=== PATIENT | male | born 1960 | race Caucasian/White ===

== ENCOUNTER 2018-07-29 05:51 | Emergency (ER) | payer BC ==
[2018-07-29] MEDS ORDERED: Tamsulosin 0.4 MG Cap.ER PO ONE (06:31)
[2018-07-29] MEDS ORDERED: Sodium Chloride 0.9% 10 ML Syringe FLUSH PRN (06:31)
[2018-07-29] MEDS ORDERED: Ondansetron 4 MG/2 ML SDV IVPUSH ONE (06:32)
[2018-07-29] MEDS ORDERED: Morphine 4 MG/ML Syringe IVPUSH ONE (06:32)
[2018-07-29] MEDS ORDERED: Morphine 2 MG/ML Syringe IVPUSH ONE (06:37)
--- NOTE | 2018-07-29 06:39 | EDM.PDOC ---
<Santiago Gamez - Last Filed: 07/29/18 06:33> ED HPI GENERAL MEDICAL PROBLEM - General Chief Complaint: Genitourinary Problem Stated Complaint: KIDNEY PAIN Time Seen by Provider: 07/29/18 06:20 Source of Information: Reports: Patient History Limitations: Reports: No Limitations - History of Present Illness INITIAL COMMENTS - FREE TEXT/NARRATIVE: Jaquan comes into [facility] ED with L CVA pain that is colicky in nature, radiating into L flank, since early this am. There has been some nausea, no vomiting, and some gross BRB in the urine. He has a PMH of bilateral nephrolithiasis diagnosed in [place], [place] last year. He has not passed a stone in the past. He has taken no meds. left flank Pain Score (Numeric/FACES): 4 - Related Data Allergies Allergy/AdvReac Type Severity Reaction Status Date / Time No Known Allergies Allergy Verified 04/16/13 10:31 Home Meds: Home Meds Acetaminophen/oxyCODONE [Percocet 325-7.5 MG] 1 tab PO Q4H PRN #6 tab 07/29/18 [ Rx] Lisinopril/Hydrochlorothiazide [Lisinopril-Hctz 20-25 mg Tab] 1 tab PO DAILY 02/06 [History] Tamsulosin HCl [Flomax] 0.4 mg PO DAILY #5 cap.er.24h 07/29/18 [Rx] clonazePAM [Clonazepam] 1 mg PO DAILY PRN 07/29/18 [History] Acetaminophen/oxyCODONE [Percocet 325-5 MG] 1 each PO Q6HR PRN #6 tab 07/30/18 [ Rx] Past Medical History Cardiovascular History: Reports: Hypertension Genitourinary History: Reports: Renal Calculus Psychiatric History: Reports: Anxiety Social & Family History - Family History Family Medical History: Noncontributory - Tobacco Use Smoking Status *Q: Never Smoker Second Hand Smoke Exposure: No - Caffeine Use Caffeine Use: Reports: Soda Other Caffeine Use: occassionaly - Recreational Drug Use Recreational Drug Use: No ED ROS GENERAL - Review of Systems Review Of Systems: ROS reveals no pertinent complaints other than HPI. ED EXAM, RENAL/ - Physical Exam Exam: See Below Exam Limited By: No Limitations General Appearance: Alert, WD/WN, Mild Distress Eye Exam: Bilateral Eye: EOMI, Normal Inspection, PERRL Ears: Normal External Exam Nose: Normal Inspection Throat/Mouth: Normal Inspection, Normal Lips, Normal Oropharynx, Normal Voice, No Airway Compromise Head: Normocephalic Neck: Normal Inspection Respiratory/Chest: Lungs Clear Cardiovascular: Regular Rate, Rhythm, No Murmur GI/Abdominal: Normal Bowel Sounds, Soft, No Organomegaly, No Distention, No Mass , Tender (mild LLQ) (Male) Exam: No Hernia, Normal Inspection Rectal (Males) Exam: Deferred Back Exam: Normal Inspection Extremities: Normal Inspection Neurological: Alert, Oriented, CN II-XII Intact, Normal Cognition, Normal Gait, No Motor/Sensory Deficits Psychiatric: Normal Affect, Normal Mood Skin Exam: Warm, Dry, Intact, Normal Color, No Rash Lymphatic: No Adenopathy Course - Vital Signs Text/Narrative:: Following assessment at the [facility] ED, I inspected a urine specimen and is was grossly reddened in color. An IV was started in the RUE, and initiated 1L of NS , and administered MS 4 mg IV, Zofran 4 mg IV, and Flomax 0.4 mg po pending results of Abd-Pelvic CT wo contrast. Last Recorded V/S: Last Vital Signs Temp 36.9 C 07/29/18 09:40 Pulse 85 07/29/18 09:40 Resp 20 07/29/18 09:40 BP 130/84 07/29/18 09:40 Pulse Ox 97 07/29/18 09:40 - Orders/Labs/Meds Labs: Laboratory Tests 07/29/18 07/29/18 07/29/18 Range/Units 06:16 06:50 06:50 WBC 9.4 (4.5-12.0) X10-3/uL RBC 5.28 (4.30-5.75) x10(6)uL Hgb 16.0 (13.5-17.8) g/dL Hct 46.5 (30.0-51.3) % MCV 88.1 (80-96) fL MCH 30.3 (27.7-33.6) pg MCHC 34.4 (32.2-35.4) g/dL RDW 12.0 (11.5-15.5) % Plt Count 135 (125-369) X10(3)uL MPV 10.1 (7.4-10.4) fL Add Manual Diff Yes Neutrophils % (Manual) 83 H (46-82) % Lymphocytes % (Manual) 12 L (13-37) % Monocytes % (Manual) 5 (4-12) % Sodium 136 (135-145) mmol/L Potassium 3.8 (3.5-5.3) mmol/L Chloride 102 (100-110) mmol/L Carbon Dioxide 21 (21-32) mmol/L BUN 21 H (7-18) mg/dL Creatinine 1.5 H (0.70-1.30) mg/dL Est Cr Clr Drug Dosing 60.66 mL/min Estimated GFR (MDRD) 48 L (>60) BUN/Creatinine Ratio 14.0 (9-20) Glucose 157 H (80-116) mg/dL Calcium 8.3 L (8.6-10.2) mg/dL Urine Color Yellow (YELLOW) Urine Appearance Cloudy (CLEAR) Urine pH 5.0 (5.0-6.5) Ur Specific [address] 1.025 (1.010-1.025) Urine Protein 30 H (NEGATIVE) mg/dL Urine Glucose (UA) Normal (NORMAL) mg/dL Urine Ketones Negative (NEGATIVE) mg/dL Urine Occult Blood Large H (NEGATIVE) Urine Nitrite Negative (NEGATIVE) Urine Bilirubin Negative (NEGATIVE) Urine Urobilinogen Normal (NEGATIVE) mg/dL Ur Leukocyte Esterase Negative (NEGATIVE) Urine RBC Packed H (0-5) Urine WBC 0-5 (0-5) Ur Squamous Epith Cells Few H (NS,R,O) Urine Bacteria Moderate H (NS) Meds: Medications Discontinued Medications Generic Name Dose Route Start Last Admin Trade Name Freq PRN Reason Stop Dose Admin Hydromorphone HCl 0.5 mg 07/29/18 08:31 07/29/18 08:33 Dilaudid IVPUSH 07/29/18 08:32 0.5 mg ONETIME ONE Administration Sodium Chloride 1,000 mls @ 500 mls/hr 07/29/18 06:45 07/29/18 06:54 Normal Saline IV 500 mls/hr ASDIRECTED VINCENT Administration Morphine Sulfate 4 mg 07/29/18 06:32 07/29/18 06:43 Morphine IVPUSH 07/29/18 06:33 Not Given ONETIME ONE Morphine Sulfate 4 mg 07/29/18 06:37 07/29/18 06:44 Morphine IVPUSH 07/29/18 06:38 4 mg ONETIME ONE Administration Morphine Sulfate Confirm 07/29/18 06:41 07/29/18 06:47 Morphine Administered 07/29/18 06:42 Not Given Dose 4 mg .ROUTE .STK-MED ONE Ondansetron HCl 4 mg 07/29/18 06:32 07/29/18 06:43 Zofran IVPUSH 07/29/18 06:33 4 mg ONETIME ONE Administration Oxycodone/Acetaminophen 1 tab 07/29/18 09:19 07/29/18 09:22 Percocet 325-5 Mg PO 07/29/18 09:20 1 tab ONETIME ONE Administration Sodium Chloride 10 ml 07/29/18 06:31 07/29/18 06:45 Saline Flush FLUSH 10 ml ASDIRECTED PRN Administration Keep Vein Open Tamsulosin HCl 0.4 mg 07/29/18 06:31 07/29/18 06:43 Flomax PO 07/29/18 06:32 0.4 mg ONETIME ONE Administration Departure - Departure Disposition: Home, Self-Care 01 Clinical Impression: Urolithiasis Qualifiers: Urinary calculus location: upper urinary tract Qualified Code(s): N20.9 - Urinary calculus, unspecified - Discharge Information Prescriptions: Acetaminophen/oxyCODONE [Percocet 325-5 MG] 1 each PO Q6HR PRN #6 tab PRN Reason: severe pain Acetaminophen/oxyCODONE [Percocet 325-7.5 MG] 1 tab PO Q4H PRN #6 tab PRN Reason: for severe pain only Tamsulosin HCl [Flomax] 0.4 mg PO DAILY #5 cap.er.24h Instructions: Kidney Stones, [id number] Referrals: PCP,None [Primary Care Provider] - Forms: ED Department Discharge Additional Instructions: Please increase water increase water intake, please take 600 mg Motrin every 6- 8 hours with food, Flomax as recommended, Percocet fro severe pain. Please f/u with your Urologist, come back if your symptoms get worse acutely. <Chandler Michael M - Last Filed: 07/30/18 07:57> Course - Vital Signs Last Recorded V/S: Last Vital Signs Temp 36.9 C 07/29/18 09:40 Pulse 85 07/29/18 09:40 Resp 20 07/29/18 09:40 BP 130/84 07/29/18 09:40 Pulse Ox 97 07/29/18 09:40 Pt was signed out to me at 7 am due to shift change, pending lab test and imaging studies. CBC was nl GFR 43 Cr 1,5 BUN 21 Imaging: Mild Hydronephrosis, 3 mm stone at the left ureteropelvic junction. Bilat nephrocalcinosis. Tx: Flomax, MS, NS Reexam: Improved, no bloody urine anymore. 9.[address] Lorenz, Pt's Urologist: Call urologist contracts administrator. Plan: D/C with instructions 07/30/2018 7.45 am Mariah nurse, call me, the Pt's brother arrived in the ed stating Jaquan Rice 's pain came back requesting more Percocet. Pt's pain was ok over night. This morning, the pain came back and the roads are too bad to go to his Urologist in [place] today. I gave a prescription of 6 tablets of Percocet and advised again to take Motrin as well. Pt is taking Flomax daily. The prescription was picked up by the Pt's brother because the pt himself was in too much pain. Departure - Departure Time of Disposition: 08:27 Condition: Good
[2018-07-29] MEDS ORDERED: Morphine 2 MG/ML Syringe ONE (06:41)
[2018-07-29] MEDS ORDERED: Sodium Chloride 0.9% 1,000 ML IV SCH (06:45)
[2018-07-29] MEDS ORDERED: HYDROmorphone 2 MG/ML SDV IVPUSH ONE (08:31)
[2018-07-29] MEDS ORDERED: Acetaminophen/oxyCODONE 325-5 MG Tab PO ONE (09:19)
[2018-07-29 09:42] VITALS: BP 130/84
== END 2018-07-29 09:42 | disposition home or self-care (01) ==
LOC: FB.ED 05:51
DX: N13.2 Hydronephrosis with renal and ureteral calculous obstruction (principal); I10 Essential (primary) hypertension; Z79.899 Other long term (current) drug therapy
CPT/HCPCS: 36415; 74176; 80048; 81001; 85025; 96361; 96374; 96375; 99284; A9270; J1170; J2270; J2405; J7030

== ENCOUNTER 2025-02-14 10:30 | Emergency (ER) | payer BC, MEDICARE ==
[2025-02-14 11:00] LABS: APPEARANCE,URINE CLEAR (CLEAR); GLUCOSE,URINE NORMAL (NORMAL); OCCULT BLOOD,URINE MODERATE (NEGATIVE)
[2025-02-14 11:01] LABS: SQUAMOUS EPITHELIAL CELLS,UR FEW (NS,R,O)
[2025-02-14 11:15] LABS: BASOPHILS ABSOLUTE AUTO 0.0 x10-3/uL (0.0-0.3); BASOPHILS PERCENT AUTO 0.5 % (0.3-3.8); EOSINOPHILS ABSOLUTE AUTO 0.3 x10-3/uL (0.0-0.6); LYMPHOCYTES ABSOLUTE AUTO 2.2 x10-3/uL (0.5-4.5); MONOCYTES ABSOLUTE AUTO 0.5 x10-3/uL (0.0-1.2); NEUTROPHILS ABSOLUTE AUTO 4.1 x10-3/uL (1.7-6.9); WHITE BLOOD CELL COUNT,WBC 7.2 x10-3/uL (3.2-10.1)
[2025-02-14 11:16] LABS: BLOOD UREA NITROGEN,BUN 15 mg/dL (7-18); CARBON DIOXIDE,CO2 27 mmol/L (21-32); CHLORIDE,CL 97 mmol/L (100-110); CREATININE 1.0 mg/dL (0.70-1.30); EST CRCL DRUG DOSING (CG) 84.34 mL/min; ESTIMATED GFR 84 mL/min (>60); GLUCOSE RANDOM 139 mg/dL (80-116); POTASSIUM,K 3.7 mmol/L (3.5-5.3); SODIUM,NA 135 mmol/L (135-145)
[2025-02-14 11:17] LABS: EOSINOPHILS PERCENT AUTO 3.6 % (0.1-6.8); LYMPHOCYTES PERCENT AUTO 31.1 % (15.8-45.3); MEAN PLATELET VOLUME 8.9 fL (6.7-11.0); MONOCYTES PERCENT AUTO 7.5 % (5.5-15.2); NEUTROPHILS PERCENT AUTO 57.3 % (40.3-71.8); PLATELET COUNT,PLT 153 x10(3)uL (117-477); RED BLOOD CELL COUNT 5.86 x10(6)uL (3.90-5.90); RED CELL DISTRIBUTION WIDTH 13.2 % (12.4-15.0)
[2025-02-14] MEDS: Ketorolac 30 MG/ML SDV IVPUSH ONE (11:17)
[2025-02-14 11:27] LABS: A/G RATIO 1.1; ALANINE AMINOTRANSFERASE,ALT 27 U/L (12-36); ASPARTATE AMNIOTRANSFERASE,AST 18 IU/L (5-25); BILIRUBIN TOTAL 0.8 mg/dL (0.1-1.3); PROTEIN TOTAL,TP 8.2 g/dL (6.0-8.0)
[2025-02-14 12:57] VITALS: BP 173/86; PULSE 74
== END 2025-02-14 12:25 | disposition home or self-care (01) ==
LOC: FB.ED 10:30
DX: N20.1 Calculus of ureter (principal); I10 Essential (primary) hypertension; Z79.899 Other long term (current) drug therapy
CPT/HCPCS: 36415; 74176; 80053; 81001; 85025; 96361; 96374; 99284; 99284-25; J1885; J7030